=== PATIENT | female | born 1960 | race Native Hawaiian/Other Pacific Islander ===

== ENCOUNTER 2016-09-10 14:52 | Outpatient (CLI) | payer BC ==
[~2016-09-10 14:52] MED LIST: METO50TA63 PO
== END 2016-09-10 15:52 | disposition home or self-care (01) ==
LOC: RAD 14:52
DX: M25.512 Pain in left shoulder (principal); M62.838 Other muscle spasm

== ENCOUNTER 2017-01-15 12:20 | Outpatient (CLI) | payer BC | END 2017-01-15 14:00 | disposition home or self-care (01) | LOC: US 12:20 | DX: N64.89 Other specified disorders of breast (principal); N64.4 Mastodynia | CPT/HCPCS: G0204-TC ==

== ENCOUNTER 2017-11-10 13:31 | Observation (INO) | payer BC ==
[~2017-11-10] VITALS: Ht 162.6 cm; Wt 82.7 kg
[2017-11-10 13:35] VITALS: BP 148/97; TEMP 98
[2017-11-10 14:16] LABS: PLATELET COUNT 410 K/uL (152-353)
[2017-11-10 14:20] LABS: POTASSIUM 3.5 mmol/L (3.6-5.2)
[2017-11-10 17:41] VITALS: BP 107/62; TEMP 98; Ht 162.6 cm; Wt 82.7 kg
[2017-11-10 20:21] VITALS: BP 145/57; TEMP 98.4
[2017-11-10] MEDS ORDERED: SIMV40TA57 PO (21:14)
[2017-11-10] MEDS ORDERED: TRICOR145 M1 PO (21:19)
[2017-11-10] MEDS ORDERED: LISITAB PO (21:21)
[2017-11-11 00:17] VITALS: BP 125/57; TEMP 98.2
[2017-11-11 04:33] VITALS: BP 122/51; TEMP 98.1
[2017-11-11 07:58] VITALS: BP 122/57; TEMP 98.1
[2017-11-11 12:00] VITALS: BP 120/52; TEMP 97.8
== END 2017-11-11 14:55 | disposition home or self-care (01) ==
LOC: ED 13:31 → MED/SURG 17:00
DX: K57.32 Diverticulitis of large intestine without perforation or abscess without bleeding (principal)
CPT/HCPCS: 36415; 80053; 81000; 85027; 96365; 96366; 96367; 96372; 99220; 99283; G0378; J0744; J1650; J3490; J7120; Q9963

== ENCOUNTER 2017-11-15 16:22 | Outpatient (CLI) | payer BC ==
[~2017-11-15 16:22] MED LIST changes: +LISITAB PO; +SIMV40TA57 PO; +TRICOR145 M1 PO
== END 2017-11-15 16:26 | disposition short-term general hospital (02) ==
LOC: AMB 16:22
DX: R55 Syncope and collapse (principal)
CPT/HCPCS: A0425; A0429

== ENCOUNTER 2017-11-15 16:36 | Emergency (ER) | payer BC ==
[~2017-11-15] VITALS: Ht 162.6 cm; Wt 82.6 kg
[2017-11-15 16:35] VITALS: TEMP 98.4
[2017-11-15 17:22] LABS: POTASSIUM 2.9 mmol/L (3.6-5.2)
[2017-11-15 17:27] LABS: PLATELET COUNT 496 K/uL (152-353)
[2017-11-15 20:30] VITALS: BP 114/50
== END 2017-11-15 20:50 | disposition short-term general hospital (02) ==
LOC: ED 16:36
DX: S06.891A Other specified intracranial injury with loss of consciousness of 30 minutes or less, initial encounter (principal); W18.39XA Other fall on same level, initial encounter; Y93.89 Activity, other specified; Y92.89 Other specified places as the place of occurrence of the external cause; Y99.8 Other external cause status; R55 Syncope and collapse
CPT/HCPCS: 80053; 82550; 84484; 85027; 93005; 96360; 96365; 96374; 96375; 99285; J1885; J2405; J7040

== ENCOUNTER 2017-11-15 21:32 | Outpatient (CLI) | payer BC | END 2017-11-15 21:54 | disposition short-term general hospital (02) | LOC: AMB 21:32 | DX: S06.891A Other specified intracranial injury with loss of consciousness of 30 minutes or less, initial encounter (principal); W18.39XA Other fall on same level, initial encounter; Y93.89 Activity, other specified; Y92.89 Other specified places as the place of occurrence of the external cause; Y99.8 Other external cause status; R55 Syncope and collapse | CPT/HCPCS: A0425; A0429 ==

== ENCOUNTER 2019-03-30 11:06 | Emergency (ER) | payer OTHER ==
[~2019-03-30] VITALS: Ht 162.6 cm; Wt 76.2 kg
[2019-03-30 12:01] LABS: PLATELET COUNT 326 K/uL (152-353)
[2019-03-30 12:05] LABS: POTASSIUM 3.7 mmol/L (3.6-5.2)
[2019-03-30 13:30] VITALS: BP 157/65; TEMP 97.9
== END 2019-03-30 13:30 | disposition home or self-care (01) ==
LOC: ED 11:06
PROVIDERS: Family Medicine
DX: R10.32 Left lower quadrant pain (principal); I10 Essential (primary) hypertension; F17.210 Nicotine dependence, cigarettes, uncomplicated
CPT/HCPCS: 36415; 80053; 81000; 85027; 96374; 99284; J1885

== ENCOUNTER 2019-05-08 12:25 | Emergency (ER) | payer OTHER ==
[~2019-05-08] VITALS: Ht 162.6 cm; Wt 76.2 kg
[2019-05-08 12:35] VITALS: TEMP 98.4
[2019-05-08 15:04] VITALS: BP 118/82
== END 2019-05-08 15:04 | disposition home or self-care (01) ==
LOC: ED 12:25
PROC: 0HQFXZZ Repair Right Hand Skin, External Approach (ICD-10-PCS; principal; 2019-05-08)
DX: S61.212A Laceration without foreign body of right middle finger without damage to nail, initial encounter (principal); W20.8XXA Other cause of strike by thrown, projected or falling object, initial encounter
CPT/HCPCS: 90471; 90715; 99283

== ENCOUNTER 2019-05-12 08:45 | Outpatient (CLI) | payer OTHER | END 2019-05-12 20:35 | disposition home or self-care (01) | LOC: RESP 08:45 | DX: I25.10 Atherosclerotic heart disease of native coronary artery without angina pectoris (principal); I35.8 Other nonrheumatic aortic valve disorders; I10 Essential (primary) hypertension; I47.1 Supraventricular tachycardia | CPT/HCPCS: 93306 ==

== ENCOUNTER 2019-05-23 17:58 | Emergency (ER) | payer OTHER ==
[~2019-05-23] VITALS: Ht 162.6 cm; Wt 76.2 kg
[2019-05-23 19:55] VITALS: BP 122/74; TEMP 97.9
== END 2019-05-23 19:56 | disposition home or self-care (01) ==
LOC: ED 17:58
DX: J32.9 Chronic sinusitis, unspecified (principal); F17.210 Nicotine dependence, cigarettes, uncomplicated
CPT/HCPCS: 87502; 87651; 99283

== ENCOUNTER 2020-06-19 08:05 | Outpatient (CLI) | payer OTHER | END 2020-06-19 20:24 | disposition home or self-care (01) | LOC: RAD 08:05 | PROVIDERS: ATTEND Nurse Practitioner Family | DX: M06.4 Inflammatory polyarthropathy (principal); M47.812 Spondylosis without myelopathy or radiculopathy, cervical region; M47.816 Spondylosis without myelopathy or radiculopathy, lumbar region; Z68.34 Body mass index [BMI] 34.0-34.9, adult ==

== ENCOUNTER 2020-10-31 13:14 | Outpatient (CLI) | payer OTHER | END 2020-10-31 22:08 | disposition home or self-care (01) | LOC: RAD 13:14 | PROVIDERS: ATTEND Nurse Practitioner Family | DX: M06.4 Inflammatory polyarthropathy (principal); M47.816 Spondylosis without myelopathy or radiculopathy, lumbar region; M54.2 Cervicalgia ==

== ENCOUNTER 2021-02-10 16:44 | Emergency (ER) | payer OTHER ==
[~2021-02-10] VITALS: Ht 162.6 cm; Wt 92.1 kg
[2021-02-10 17:30] LABS: PLATELET COUNT 334 K/uL (152-353)
[2021-02-10 17:38] LABS: POTASSIUM 4.6 mmol/L (3.6-5.2); SODIUM 143 mmol/L (136-145)
[2021-02-10 17:48] LABS: PARTIAL THROMBOPLASTIN TIME 23.7 SECONDS (24.5-33.6)
[2021-02-10 20:16] VITALS: BP 145/64; TEMP 97.9
== END 2021-02-10 20:16 | disposition home or self-care (01) ==
LOC: ED 16:44
PROVIDERS: Emergency Medicine
DX: R00.2 Palpitations (principal); R07.89 Other chest pain
CPT/HCPCS: 36415; 80053; 83880; 84484; 85027; 85379; 85610; 85730; 99283

== ENCOUNTER 2021-02-27 10:50 | Outpatient (CLI) | payer OTHER | END 2021-02-27 20:10 | disposition home or self-care (01) | LOC: RAD 10:50 | PROVIDERS: ATTEND Nurse Practitioner Family | DX: E55.9 Vitamin D deficiency, unspecified (principal); M06.4 Inflammatory polyarthropathy; M47.816 Spondylosis without myelopathy or radiculopathy, lumbar region; M54.2 Cervicalgia; M85.89 Other specified disorders of bone density and structure, multiple sites ==

== ENCOUNTER 2021-06-05 12:50 | Outpatient (CLI) | payer OTHER | END 2021-06-05 19:04 | disposition home or self-care (01) | LOC: RAD 12:50 | PROVIDERS: ATTEND Nurse Practitioner Family | DX: M06.09 Rheumatoid arthritis without rheumatoid factor, multiple sites (principal); M06.4 Inflammatory polyarthropathy; M47.812 Spondylosis without myelopathy or radiculopathy, cervical region; M47.816 Spondylosis without myelopathy or radiculopathy, lumbar region; M85.89 Other specified disorders of bone density and structure, multiple sites ==

== ENCOUNTER 2022-02-15 09:22 | Outpatient (CLI) | payer OTHER | END 2022-02-15 19:06 | disposition home or self-care (01) | LOC: US 09:22 | PROVIDERS: ATTEND Nurse Practitioner Family | DX: I10 Essential (primary) hypertension (principal); N17.9 Acute kidney failure, unspecified; R74.8 Abnormal levels of other serum enzymes ==

== ENCOUNTER 2022-06-05 10:56 | Outpatient (CLI) | payer OTHER | END 2022-06-05 19:00 | disposition home or self-care (01) | LOC: RAD 10:56 | PROVIDERS: ATTEND Nurse Practitioner Family | DX: E55.9 Vitamin D deficiency, unspecified (principal); M06.09 Rheumatoid arthritis without rheumatoid factor, multiple sites; M47.816 Spondylosis without myelopathy or radiculopathy, lumbar region; Z79.631 Long term (current) use of antimetabolite agent; Z79.899 Other long term (current) drug therapy ==

== ENCOUNTER 2022-09-17 12:06 | Outpatient (CLI) | payer OTHER | END 2022-09-17 19:15 | disposition home or self-care (01) | LOC: RAD 12:06 | PROVIDERS: ATTEND Physical Medicine & Rehabilitation Pain Medicine | DX: M54.12 Radiculopathy, cervical region (principal); M54.16 Radiculopathy, lumbar region ==